=== PATIENT | female | born 1930 | race Caucasian/White ===

== ENCOUNTER 2018-04-03 12:06 | Outpatient (CLI) | payer MEDICARE, OTHER ==
[~2018-04-03 12:06] MED LIST: ALEN70TA48 PO; AMIO200T40 PO; ASPI-10 PO; CALC-1050 PO; CALC-793 PO; CHOL400T57 PO; COR3.125T PO; CRAN300T PO; DOXY-257 PO; ERGO500041 PO; LEVO25TA7 PO; LISI-600 PO; MAGN400T6 PO; MULT-1074 PO; ROSU10TA PO; TRAM50TA2 PO
[2018-04-03 12:51] LABS: TOTAL HEMOGLOBIN 14.2 G/dl (12.0-16.0)
== END 2018-04-03 23:59 | disposition home or self-care (01) ==
LOC: RT 12:06
PROVIDERS: ATTEND Internal Medicine Cardiovascular Disease
DX: Z51.81 Encounter for therapeutic drug level monitoring (principal); I70.0 Atherosclerosis of aorta; I10 Essential (primary) hypertension; Z79.899 Other long term (current) drug therapy; Z79.82 Long term (current) use of aspirin; Z85.3 Personal history of malignant neoplasm of breast; Z90.10 Acquired absence of unspecified breast and nipple; Z98.51 Tubal ligation status
CPT/HCPCS: 71046; 85018; 94010; 94727; 94729

== ENCOUNTER 2020-01-31 10:51 | Observation (INO) | payer MEDICARE, OTHER ==
[~2020-01-31] VITALS: Ht 167.6 cm; Wt 77.3 kg
[~2020-01-31 10:51] MED LIST changes: -ALEN70TA48 PO; -AMIO200T40 PO; +AMIO200T61 PO; +BIOT50002 PO; -CALC-793 PO; -CHOL400T57 PO; +CHOL500061 PO; -CRAN300T PO; -DOXY-257 PO; -ERGO500041 PO; +LACT1CAP26 PO; -MAGN400T6 PO; +NABU750T2 PO; +NITR0.4T51 SL; -ROSU10TA PO; +ROSU10TA2 PO; -TRAM50TA2 PO
[2020-01-31] MEDS ORDERED: aspirin 81mg tab.chew PO ONE (11:10)
[2020-01-31 12:18] LABS: D-DIMER 0.61 MG/L FEU (0-0.50)
[2020-01-31 12:22] LABS: ALANINE AMINOTRANSFERASE 23 U/L (12-78); ALBUMIN 3.2 G/DL (3.4-5.0); ALBUMIN/GLOBULIN RATIO 0.9 (1.1-1.5); ALKALINE PHOSPHATASE 40 IU/L (46-116); ANION GAP 6 (8-16); ASPARTATE AMINO TRANSFERASE 23 U/L (10-37); BILIRUBIN,TOTAL 0.4 MG/DL (0.1-1.0); BLOOD UREA NITROGEN 20 MG/DL (7-18); BUN/CREATININE RATIO 19.2 (6.6-38.0); CALCIUM 9.4 MG/DL (8.5-10.1); CHLORIDE 107 MMOL/L (99-107); CREATININE 1.04 MG/DL (0.40-0.90); GLUCOSE 89 MG/DL (70-104); SODIUM 140 MMOL/L (135-145); TOTAL PROTEIN 6.6 G/DL (6.4-8.2); eGFR 50 ML/MIN
[2020-01-31 12:30] LABS: BASOPHILS % (AUTO) 0.6 % (0-1); EOSINOPHILS # (AUTO) 0.1 X10'3 (0-0.9); EOSINOPHILS % (AUTO) 1.8 % (0-6); HEMATOCRIT 40.5 % (35.0-45.0); HEMOGLOBIN 13.6 g/dl (12.0-16.0); LYMPHOCYTES # (AUTO) 1.4 X10'3 (1.1-4.8); LYMPHOCYTES % (AUTO) 28.1 % (21-51); MEAN CORPUSCULAR HEMOGLOBIN 30.8 PG (27.0-31.0); MEAN CORPUSCULAR HGB CONC 33.7 g/dL (33.0-36.5); MEAN CORPUSCULAR VOLUME 91.2 FL (78-98); MEAN PLATELET VOLUME 7.5 FL (7.4-10.4); MONOCYTES # (AUTO) 0.5 X10'3 (0-0.9); MONOCYTES % (AUTO) 9.8 % (2-12); NEUTROPHILS # (AUTO) 2.9 X10'3 (1.8-7.7); NEUTROPHILS % (AUTO) 59.7 % (42-75); PLATELET COUNT 204 X10'3 (140-440); RED BLOOD COUNT 4.44 X10'6 (4.20-5.60); RED CELL DISTRIBUTION WIDTH 13.9 % (11.5-14.5); WHITE BLOOD COUNT 4.9 X10'3 (4.5-11.0)
[2020-01-31] MEDS ORDERED: nitroGLYCERIN 0.4mg SUBLingual tab SL PRN ×2 (12:30→13:25)
[2020-01-31] MEDS ORDERED: acetaminophen 325mg tablet PO PRN ×2 (13:10)
[2020-01-31] MEDS ORDERED: docusate sod 100mg capsule PO PRN (13:10)
[2020-01-31] MEDS ORDERED: HYDROcodone/acetaminophen 5mg/325mg tablet PO PRN (13:10)
[2020-01-31] MEDS ORDERED: morphine 2 MG/ML inj. syringe IV PRN (13:10)
[2020-01-31] MEDS ORDERED: magnesium 4gm in 100ml NS 100 ML IV PRN (13:10)
[2020-01-31] MEDS ORDERED: magnesium 2GM in 50ml NS 50 ML IV PRN (13:10)
[2020-01-31] MEDS ORDERED: ondansetron/PF 4mg/2ml inj IV PRN (13:10)
[2020-01-31] MEDS ORDERED: magnesium Cl slow-release 64mg tablet PO PRN (13:10)
[2020-01-31] MEDS ORDERED: potassium CL 10mEq/100ml bag 100 ML IV PRN ×2 (13:10)
[2020-01-31] MEDS ORDERED: potassium Cl 20 mEq SR tablet PO PRN ×2 (13:10)
[2020-01-31] MEDS ORDERED: CefTRIAXone 2gm/D5W 50ml 50 ML IV ONE (13:15)
[2020-01-31] MEDS ORDERED: regadenoson 0.4mg/5ml syringe IV PRN (13:25)
[2020-01-31] MEDS ORDERED: CefTRIAXone inj 2,000 MG in normal saline 100ml IV soln 100 ML IV ONE (13:25)
[2020-01-31] MEDS ORDERED: iohexol 350MG/ML 100ml bottle IV ONE (13:25)
[2020-01-31] MEDS ORDERED: aminophylline 250mg/10ml inj. IV PRN (13:25)
[2020-01-31] MEDS ORDERED: metoprolol tartrate 1mg/ml inj IV PRN (13:25)
--- NOTE | 2020-01-31 14:12 | NUR ---
[facility] CALLED, PROCEDURE DELAYED UNTIL TOMORROW MORNINGA. PT TO BE NPO @ MIDNIGHT. PRIMARY RN IRVING TO BE NOTIFIED.
--- NOTE | 2020-01-31 14:33 | NUR ---
Patient in room ED 9. I have received report from Jeremy COLLAZO and had the opportunity to ask questions and assume patient care.
--- NOTE | 2020-01-31 15:29 | NUR ---
Paged Dr. Connor for Blood Cultures. PAGER ID: [phone] MESSAGE: [phone]. Jessie Garcia. Would you like to have Blood Cultures ordered for pt before starting on the Rocephin? Thank You! Panda RN x [phone]
[2020-01-31] MEDS: normal saline 1000ml 1,000 ML IV SCH (16:26)
[2020-01-31 18:00] VITALS: BP 150/73
--- NOTE | 2020-01-31 18:30 | NUR ---
Patient in room PCU 3014. I have received report from Nancy COLLAZO and had the opportunity to ask questions and assume patient care.
--- NOTE | 2020-01-31 18:32 | NUR ---
Patient in room PCU 3014. I have received report from Edwin COLLAZO and Panda COLLAZO and had the opportunity to ask questions and assume patient care.
--- NOTE | 2020-01-31 18:40 | NUR ---
Problems reprioritized. Patient report given, questions answered & plan of care reviewed with Morena COLLAZO .
--- NOTE | 2020-01-31 18:40 | NUR ---
Orientee documentation: I have reviewed and agree with all interventions, assessments performed and documented by Panda COLLAZO.
[2020-01-31] MEDS: K and/or MAG REPLACEMENT MC SCH (20:00)
[2020-01-31] MEDS: heparin, porcine 5000 units/ml vial SQ SCH (20:36)
[2020-01-31] MEDS: carvedilol 6.25mg tablet PO SCH (20:36)
[2020-01-31] MEDS ORDERED: temazepam 15mg capsule PO PRN (21:00)
[2020-01-31 22:00] VITALS: BP 128/65
[2020-02-01] VITALS (14 sets, daily range): BP systolic 148–177; BP diastolic 73–84
[2020-02-01 06:15] LABS: BASOPHILS % (AUTO) 0.8 % (0-1); EOSINOPHILS # (AUTO) 0.1 X10'3 (0-0.9); HEMATOCRIT 39.9 % (35.0-45.0); HEMOGLOBIN 13.5 g/dl (12.0-16.0); LYMPHOCYTES # (AUTO) 1.6 X10'3 (1.1-4.8); LYMPHOCYTES % (AUTO) 33.5 % (21-51); MEAN CORPUSCULAR HEMOGLOBIN 31.2 PG (27.0-31.0); MEAN CORPUSCULAR HGB CONC 33.9 g/dL (33.0-36.5); MEAN CORPUSCULAR VOLUME 92.1 FL (78-98); MEAN PLATELET VOLUME 7.5 FL (7.4-10.4); MONOCYTES # (AUTO) 0.6 X10'3 (0-0.9); MONOCYTES % (AUTO) 12.1 % (2-12); NEUTROPHILS # (AUTO) 2.5 X10'3 (1.8-7.7); NEUTROPHILS % (AUTO) 51.6 % (42-75); PLATELET COUNT 185 X10'3 (140-440); RED BLOOD COUNT 4.33 X10'6 (4.20-5.60); RED CELL DISTRIBUTION WIDTH 14.1 % (11.5-14.5); WHITE BLOOD COUNT 4.9 X10'3 (4.5-11.0)
--- NOTE | 2020-02-01 06:29 | NUR ---
Problems reprioritized. Patient report given, questions answered & plan of care reviewed with Zuri COLLAZO.
[2020-02-01 06:35] LABS: ALANINE AMINOTRANSFERASE 22 U/L (12-78); ALBUMIN 3.1 G/DL (3.4-5.0); ALKALINE PHOSPHATASE 36 IU/L (46-116); ANION GAP 5 (8-16); ASPARTATE AMINO TRANSFERASE 18 U/L (10-37); BILIRUBIN,TOTAL 0.3 MG/DL (0.1-1.0); BLOOD UREA NITROGEN 21 MG/DL (7-18); BUN/CREATININE RATIO 23.3 (6.6-38.0); CALCIUM 8.7 MG/DL (8.5-10.1); CHLORIDE 111 MMOL/L (99-107); CHOLESTEROL 118 MG/DL (0-200); GLUCOSE 87 MG/DL (70-104); HDL CHOLESTEROL 40 MG/DL (35-60); LDL CHOLESTEROL 51 MG/DL (50-100); MAGNESIUM 2.1 MG/DL (1.5-2.4); POTASSIUM 3.8 MMOL/L (3.5-5.1); SODIUM 142 MMOL/L (135-145); TOTAL CARBON DIOXIDE 26.5 MMOL/L (24-32); TOTAL PROTEIN 6.3 G/DL (6.4-8.2); TRIGLYCERIDES 124 MG/DL (20-135); eGFR 59 ML/MIN
--- NOTE | 2020-02-01 06:47 | NUR ---
Patient in room PCU 3014. I have received report from Morena and had the opportunity to ask questions and assume patient care. Patient was awake and resting comfortably.
--- NOTE | 2020-02-01 06:47 | NUR ---
Patient in room PCU 3014. I have received report from Morena COLLAZO and had the opportunity to ask questions and assume patient care.
[2020-02-01] MEDS: heparin, porcine 5000 units/ml vial SQ SCH (07:55)
[2020-02-01] MEDS ORDERED: lisinopril 20mg tablet PO SCH (08:00)
[2020-02-01] MEDS ORDERED: levoTHYROXINE 25mcg tablet PO SCH (08:00)
[2020-02-01] MEDS ORDERED: aspirin 325mg tablet, delayed-release (Ecotrin) PO SCH (08:00)
[2020-02-01] MEDS ORDERED: amiodarone 200mg tablet PO SCH (08:00)
[2020-02-01] MEDS ORDERED: atorvastatin 20mg tablet PO SCH (08:00)
[2020-02-01] MEDS: K and/or MAG REPLACEMENT MC SCH (08:00)
[2020-02-01] MEDS: normal saline 1000ml 1,000 ML IV SCH (08:08)
[2020-02-01] MEDS: carvedilol 6.25mg tablet PO SCH (11:16)
--- NOTE | 2020-02-01 12:50 | NUR ---
PAGER ID: [phone] MESSAGE: [id number] Daiana Holguin results are up. Can patient eat? Maranda COLLAZO ext [phone]
--- NOTE | 2020-02-01 14:47 | NUR ---
Patient's Daiana was negative and patient was cleared to D/C by Dr Benavidez. Patient was upset about not being able to eat. Late tray was ordered and patient was able to eat before discharge. Removed tele, and PIV X2. Patient was educated about chest pain and provided handout educational material. Patient was wheeled down in wheelchair in stable condition and was picked up by friend.
--- NOTE | 2020-02-01 14:58 | NUR ---
Agree with orientatees documentation.
== END 2020-02-01 14:41 | disposition home or self-care (01) ==
LOC: ER 10:51 → ED HOLD 13:08 → PCU 3S 14:49
PROVIDERS: ADMIT Internal Medicine; ATTEND Internal Medicine
DX: R07.89 Other chest pain (principal); I25.119 Atherosclerotic heart disease of native coronary artery with unspecified angina pectoris; G89.29 Other chronic pain; M54.5 Low back pain; M54.6 Pain in thoracic spine; E03.9 Hypothyroidism, unspecified; E78.5 Hyperlipidemia, unspecified; I48.91 Unspecified atrial fibrillation; I24.9 Acute ischemic heart disease, unspecified; J20.9 Acute bronchitis, unspecified; N28.89 Other specified disorders of kidney and ureter; E78.00 Pure hypercholesterolemia, unspecified; M19.90 Unspecified osteoarthritis, unspecified site; M81.0 Age-related osteoporosis without current pathological fracture; Z85.3 Personal history of malignant neoplasm of breast; Z95.0 Presence of cardiac pacemaker; Z79.82 Long term (current) use of aspirin; Z79.899 Other long term (current) drug therapy; Z88.2 Allergy status to sulfonamides; Z91.048 Other nonmedicinal substance allergy status
CPT/HCPCS: 36415; 71045; 71275; 78452; 80053; 80061; 83735; 83880; 84484; 85025; 85379; 87040; 87081; 93005; 93017; 93306; 96365; 96372; 96375; 99285; A9500; G0378; J0280; J0696; J1644; J2785; J7030; Q9967

== ENCOUNTER 2020-05-12 16:10 | Outpatient (CLI) | payer MEDICARE, OTHER ==
[~2020-05-12 16:10] MED LIST changes: +NABU-136 PO; -NABU750T2 PO
[2020-05-12 16:30] LABS: TOTAL HEMOGLOBIN 14.2 G/dl (12.0-16.0)
== END 2020-05-12 23:59 | disposition home or self-care (01) ==
LOC: RT 16:10
PROVIDERS: ATTEND Internal Medicine Cardiovascular Disease
DX: R06.02 Shortness of breath (principal)
CPT/HCPCS: 71046; 85018; 94010; 94727; 94729

== ENCOUNTER 2021-11-30 14:05 | Outpatient (CLI) | payer MEDICARE, OTHER ==
[~2021-11-30 14:05] MED LIST changes: -LISI-600 PO; +LISI20TA28 PO; -NABU-136 PO; +NABU-141 PO
[2021-11-30 14:37] LABS: TOTAL HEMOGLOBIN 14.2 G/dl (12.0-16.0)
== END 2021-11-30 23:59 | disposition home or self-care (01) ==
LOC: RT 14:05
PROVIDERS: ATTEND Internal Medicine Cardiovascular Disease
DX: I70.0 Atherosclerosis of aorta (principal); R06.02 Shortness of breath; Z79.899 Other long term (current) drug therapy
CPT/HCPCS: 71046; 85018; 94010; 94727; 94729

== ENCOUNTER 2021-12-20 02:41 | Emergency (ER) | payer MEDICARE, OTHER ==
[~2021-12-20] VITALS: Ht 167.6 cm; Wt 72.7 kg
[2021-12-20 03:13] LABS: BASOPHILS % (AUTO) 0.9 % (0-1); EOSINOPHILS # (AUTO) 0.1 X10'3 (0-0.9); EOSINOPHILS % (AUTO) 3.1 % (0-6); HEMATOCRIT 41.7 % (35.0-45.0); HEMOGLOBIN 13.6 g/dl (12.0-16.0); LYMPHOCYTES # (AUTO) 1.7 X10'3 (1.1-4.8); LYMPHOCYTES % (AUTO) 34.1 % (21-51); MEAN CORPUSCULAR HEMOGLOBIN 28.6 PG (27.0-31.0); MEAN CORPUSCULAR HGB CONC 32.6 g/dL (33.0-36.5); MEAN CORPUSCULAR VOLUME 87.9 FL (78-98); MEAN PLATELET VOLUME 7.1 FL (7.4-10.4); MONOCYTES # (AUTO) 0.5 X10'3 (0-0.9); MONOCYTES % (AUTO) 10.8 % (2-12); NEUTROPHILS # (AUTO) 2.5 X10'3 (1.8-7.7); NEUTROPHILS % (AUTO) 51.1 % (42-75); PLATELET COUNT 192 X10'3 (140-440); RED BLOOD COUNT 4.75 X10'6 (4.20-5.60); RED CELL DISTRIBUTION WIDTH 14.4 % (11.5-14.5); WHITE BLOOD COUNT 4.8 X10'3 (4.5-11.0)
[2021-12-20 03:24] LABS: APTT 30 SECONDS (22-32)
[2021-12-20 03:27] LABS: ALANINE AMINOTRANSFERASE 20 U/L (12-78); ALBUMIN 3.5 G/DL (3.4-5.0); ALKALINE PHOSPHATASE 54 IU/L (46-116); ANION GAP 7 (8-16); ASPARTATE AMINO TRANSFERASE 18 U/L (10-37); BILIRUBIN,TOTAL 0.5 MG/DL (0.1-1.0); BLOOD UREA NITROGEN 28 MG/DL (7-18); BUN/CREATININE RATIO 30.1 (6.6-38.0); CALCIUM 9.4 MG/DL (8.5-10.1); CHLORIDE 107 MMOL/L (99-107); CREATININE 0.93 MG/DL (0.40-0.90); GLUCOSE 109 MG/DL (70-104); POTASSIUM 3.7 MMOL/L (3.5-5.1); SODIUM 141 MMOL/L (135-145); TOTAL CARBON DIOXIDE 26.9 MMOL/L (24-32); eGFR 57 ML/MIN
[2021-12-20 05:36] VITALS: BP 169/77
== END 2021-12-20 06:31 | disposition home or self-care (01) ==
LOC: ER 02:42
DX: T82.897A Other specified complication of cardiac prosthetic devices, implants and grafts, initial encounter (principal); S40.811A Abrasion of right upper arm, initial encounter; M79.602 Pain in left arm; I11.9 Hypertensive heart disease without heart failure; E78.00 Pure hypercholesterolemia, unspecified; K21.9 Gastro-esophageal reflux disease without esophagitis; Z88.2 Allergy status to sulfonamides; Z79.899 Other long term (current) drug therapy; W18.39XA Other fall on same level, initial encounter; Y93.89 Activity, other specified; Y92.89 Other specified places as the place of occurrence of the external cause; Y99.8 Other external cause status
CPT/HCPCS: 36415; 71045; 80053; 84484; 85025; 85610; 85730; 93005; 99285

== ENCOUNTER 2021-12-28 03:58 | Emergency (ER) | payer MEDICARE, OTHER ==
[~2021-12-28] VITALS: Ht 167.6 cm; Wt 72.7 kg
[2021-12-28 04:54] LABS: WHITE BLOOD COUNT 4.8 X10'3 (4.5-11.0)
[2021-12-28 04:57] LABS: BASOPHILS % (AUTO) 0.5 % (0-1); EOSINOPHILS # (AUTO) 0.1 X10'3 (0-0.9); EOSINOPHILS % (AUTO) 2.4 % (0-6); HEMATOCRIT 42.3 % (35.0-45.0); HEMOGLOBIN 14.2 g/dl (12.0-16.0); LYMPHOCYTES # (AUTO) 1.7 X10'3 (1.1-4.8); LYMPHOCYTES % (AUTO) 36.3 % (21-51); MEAN CORPUSCULAR HEMOGLOBIN 29.4 PG (27.0-31.0); MEAN CORPUSCULAR HGB CONC 33.4 g/dL (33.0-36.5); MEAN CORPUSCULAR VOLUME 87.9 FL (78-98); MEAN PLATELET VOLUME 7.1 FL (7.4-10.4); MONOCYTES # (AUTO) 0.5 X10'3 (0-0.9); MONOCYTES % (AUTO) 10.4 % (2-12); NEUTROPHILS # (AUTO) 2.4 X10'3 (1.8-7.7); NEUTROPHILS % (AUTO) 50.4 % (42-75); PLATELET COUNT 173 X10'3 (140-440); RED BLOOD COUNT 4.82 X10'6 (4.20-5.60); RED CELL DISTRIBUTION WIDTH 14.6 % (11.5-14.5)
[2021-12-28 05:03] LABS: ALANINE AMINOTRANSFERASE 28 U/L (12-78); ALBUMIN 3.1 G/DL (3.4-5.0); ALBUMIN/GLOBULIN RATIO 0.9 (1.1-1.5); ALKALINE PHOSPHATASE 49 IU/L (46-116); ANION GAP 7 (8-16); BILIRUBIN,TOTAL 0.5 MG/DL (0.1-1.0); BLOOD UREA NITROGEN 24 MG/DL (7-18); BUN/CREATININE RATIO 27.6 (6.6-38.0); CALCIUM 9.3 MG/DL (8.5-10.1); CHLORIDE 108 MMOL/L (99-107); CREATININE 0.87 MG/DL (0.40-0.90); GLUCOSE 88 MG/DL (70-104); SODIUM 139 MMOL/L (135-145); TOTAL PROTEIN 6.5 G/DL (6.4-8.2); eGFR 61 ML/MIN
[2021-12-28 05:06] LABS: ASPARTATE AMINO TRANSFERASE 27 U/L (10-37); POTASSIUM 4.3 MMOL/L (3.5-5.1)
--- NOTE | 2021-12-28 07:34 | NUR ---
PT REFUSED TO USE PURVICK FOR URINATION ,WANT TO USE BEDSIDE COMMODE BEING USING EARLIER IN ER ,PT NEED MININMAL ASSISTANCE .
[2021-12-28 08:39] VITALS: BP 168/88
--- NOTE | 2021-12-28 09:04 | NUR ---
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
== END 2021-12-28 09:30 | disposition home or self-care (01) ==
LOC: ER 03:59
DX: S22.000A Wedge compression fracture of unspecified thoracic vertebra, initial encounter for closed fracture (principal); S40.021A Contusion of right upper arm, initial encounter; M54.50 Low back pain, unspecified; I48.91 Unspecified atrial fibrillation; I25.10 Atherosclerotic heart disease of native coronary artery without angina pectoris; E78.00 Pure hypercholesterolemia, unspecified; I10 Essential (primary) hypertension; K21.9 Gastro-esophageal reflux disease without esophagitis; E03.9 Hypothyroidism, unspecified; M19.90 Unspecified osteoarthritis, unspecified site; Z95.0 Presence of cardiac pacemaker; Z98.890 Other specified postprocedural states; Z88.2 Allergy status to sulfonamides; Z79.82 Long term (current) use of aspirin; Z79.899 Other long term (current) drug therapy; W19.XXXA Unspecified fall, initial encounter; Y93.89 Activity, other specified; Y92.89 Other specified places as the place of occurrence of the external cause; Y99.8 Other external cause status
CPT/HCPCS: 36415; 72128; 72131; 72170; 80053; 85025; 99285

== ENCOUNTER 2022-01-19 07:46 | Emergency (ER) | payer MEDICARE, OTHER ==
[~2022-01-19] VITALS: Ht 167.6 cm; Wt 75.0 kg
[2022-01-19 07:50] VITALS: BP 122/59
[2022-01-19] MEDS ORDERED: LIDO700A32 TOP (11:05)
== END 2022-01-19 11:37 | disposition home or self-care (01) ==
LOC: ER 07:46
DX: M54.50 Low back pain, unspecified (principal); I48.91 Unspecified atrial fibrillation; I25.10 Atherosclerotic heart disease of native coronary artery without angina pectoris; E78.00 Pure hypercholesterolemia, unspecified; I10 Essential (primary) hypertension; K21.9 Gastro-esophageal reflux disease without esophagitis; E03.9 Hypothyroidism, unspecified; M19.90 Unspecified osteoarthritis, unspecified site; G89.29 Other chronic pain; Z95.0 Presence of cardiac pacemaker; Z98.890 Other specified postprocedural states; Z88.2 Allergy status to sulfonamides; Z88.8 Allergy status to other drugs, medicaments and biological substances; Z79.82 Long term (current) use of aspirin; Z79.899 Other long term (current) drug therapy
CPT/HCPCS: 99284